=== PATIENT | male | born 1950 | race Caucasian/White ===

== ENCOUNTER → 2016-08-18 | Outpatient (CLI) | payer MEDICARE ==
[~2016-08-18] MED LIST: APIX5TAB PO; ATOR20TA9 PO; DIGO125T PO; DILT60TA27 PO; NEBI5TAB2 PO; OXYC1TAB7 PO; REGADENOSON 0.4 MG/5 ML SYRINGE ONE
== END | disposition home or self-care (01) ==
LOC: CFH 08:22
PROVIDERS: ATTEND Internal Medicine Cardiovascular Disease
DX: I10 Essential (primary) hypertension (principal); I48.0 Paroxysmal atrial fibrillation
CPT/HCPCS: 78452; 93017; A9502; J2785

== ENCOUNTER 2016-11-16 08:58 | Observation (INO) | payer MEDICARE ==
[2016-11-15 09:52] VITALS: BP 126/62
[2016-11-15 10:31] LABS: ASPARTATE AMINO TRANSFERASE 19 U/L (15-37); BLOOD UREA NITROGEN 10 mg/dL (7-18)
[~2016-11-16] VITALS: Ht 172.7 cm; Wt 69.7 kg
[~2016-11-16 08:58] MED LIST changes: +DILT120C64 PO; -REGADENOSON 0.4 MG/5 ML SYRINGE ONE
[2016-11-16] MEDS ORDERED: SODIUM CHLORIDE 0.9% 1,000 ML IV SCH (09:24)
[2016-11-16] MEDS ORDERED: CEFAZOLIN PMX 1GM/50ML 50 ML IVPB ONE (09:30)
[2016-11-16] MEDS ORDERED: FENTANYL PF 100 MCG/2ML ONE (12:13)
[2016-11-16] MEDS ORDERED: CEFAZOLIN 1,000 MG ONE (12:13)
[2016-11-16] MEDS ORDERED: MIDAZOLAM 1 MG/ML, 5ML ONE (12:13)
[2016-11-16] MEDS ORDERED: CEFAZOLIN PMX 1GM/50ML 50 ML ONE (12:20)
[2016-11-16] MEDS ORDERED: DIPHENHYDRAMINE 50 MG/ML, 1ML ONE (12:45)
[2016-11-16] MEDS ORDERED: LIDOCAINE 2%, 20ML ONE (12:50)
[2016-11-16] MEDS ORDERED: ZOLPIDEM 5MG TABLET PO PRN (13:30)
[2016-11-16 15:44] VITALS: BP 140/66
[2016-11-16] MEDS ORDERED: CEFAZOLIN PMX 1GM/50ML 50 ML IVPB SCH (16:00)
[2016-11-16] MEDS ORDERED: ACETAMINOPHEN 325 MG TABLET ONE (17:03)
[2016-11-16] MEDS ORDERED: ACETAMINOPHEN 325 MG TABLET PO PRN (17:30)
[2016-11-16] MEDS ORDERED: VANCOMYCIN PMX 1GM/200ML 200 ML IVPB ONE (18:00)
[2016-11-16] MEDS: HYDROcodone/APAP 5/325 TABLET PO PRN (19:16)
[2016-11-16 20:15] VITALS: BP 121/72
[2016-11-16] MEDS ORDERED: ATORVASTATIN 20 MG TABLET PO SCH (21:00)
[2016-11-16] MEDS: SODIUM CHLORIDE FLUSH 10ML SYR IVF SCH (21:07)
[2016-11-16] MEDS: APIXABAN 5 MG TABLET PO SCH (21:07)
[2016-11-17 02:34] VITALS: BP 124/72
[2016-11-17] MEDS: HYDROcodone/APAP 5/325 TABLET PO PRN (04:20)
[2016-11-17] MEDS ORDERED: CEFAZOLIN PMX 1GM/50ML 50 ML IVPB SCH (05:00)
[2016-11-17] MEDS ORDERED: APIX5TAB PO (07:10)
[2016-11-17 07:39] VITALS: BP 134/72
[2016-11-17] MEDS ORDERED: DIGOXIN 0.125 MG TABLET PO SCH (09:00)
[2016-11-17] MEDS: SODIUM CHLORIDE FLUSH 10ML SYR IVF SCH (09:00)
[2016-11-17] MEDS: APIXABAN 5 MG TABLET PO SCH (09:00)
[2016-11-17] MEDS ORDERED: DILTIAZEM 120 MG CAP.ER.24H PO SCH (09:00)
[2016-11-17] MEDS ORDERED: HYDR-3240 PO (09:44)
== END 2016-11-17 11:50 | disposition home or self-care (01) ==
LOC: CACL 08:58 → 5SO 13:18 → DCLOUNGE 11-17 10:56
PROVIDERS: ADMIT Internal Medicine Cardiovascular Disease; ATTEND Internal Medicine Cardiovascular Disease
DX: I49.5 Sick sinus syndrome (principal); I48.91 Unspecified atrial fibrillation
CPT/HCPCS: 33208; 36415; 71010; 71020; 80053; 85025; 85610; 93005; 96365; 96375; 99156; C1779; C1785; C1892; G0378; J0690; J1200; J2250; J3010; J3490

== ENCOUNTER 2016-12-15 07:01 | Day surgery (SDC) | payer MEDICARE ==
[~2016-12-15] VITALS: Ht 172.7 cm; Wt 70.9 kg
[~2016-12-15 07:01] MED LIST changes: +HYDR-3240 PO
== END 2016-12-15 08:02 | disposition home or self-care (01) ==
LOC: CACL 07:01
PROVIDERS: ATTEND Internal Medicine Cardiovascular Disease
DX: I48.0 Paroxysmal atrial fibrillation (principal); I49.5 Sick sinus syndrome; I10 Essential (primary) hypertension; Z95.0 Presence of cardiac pacemaker
CPT/HCPCS: 92960; 93005

== ENCOUNTER → 2017-08-13 | Outpatient (CLI) | payer MEDICARE | END | disposition home or self-care (01) | LOC: CVU 10:58 | PROVIDERS: ATTEND Physician Assistant | DX: I34.0 Nonrheumatic mitral (valve) insufficiency (principal); I37.1 Nonrheumatic pulmonary valve insufficiency; I10 Essential (primary) hypertension; I48.0 Paroxysmal atrial fibrillation; E78.5 Hyperlipidemia, unspecified; Z95.0 Presence of cardiac pacemaker; Z87.891 Personal history of nicotine dependence | CPT/HCPCS: 93306 ==

== ENCOUNTER → 2018-09-20 | Outpatient (CLI) | payer MEDICARE ==
[~2018-09-20] MED LIST changes: +ATOR20TA37 PO; -ATOR20TA9 PO; +DILT180C59 PO; +FLEC100T PO; -NEBI5TAB2 PO; +NEBI5TAB3 PO
[2018-09-20 11:03] LABS: ALBUMIN 4.1 g/dL (3.4-5.0); CALCIUM 9.1 mg/dL (8.5-10.1)
[2018-09-20 11:07] LABS: ALANINE AMINOTRANSFERASE 34 U/L (12-78); ALKALINE PHOSPHATASE 132 U/L (45-117); CREATININE 1.08 mg/dL (0.7-1.3); TOTAL PROTEIN 8.1 g/dL (6.4-8.2)
[2018-09-20 11:21] LABS: CHLORIDE 109 mmol/L (98-107)
[2018-09-20 11:26] LABS: ANION GAP 6 mmol/L (5-15)
== END | disposition home or self-care (01) ==
LOC: STAR 09:25
PROVIDERS: ATTEND Surgery
DX: Z01.818 Encounter for other preprocedural examination (principal); K43.2 Incisional hernia without obstruction or gangrene; R94.31 Abnormal electrocardiogram [ECG] [EKG]
CPT/HCPCS: 36415; 80053; 93005

== ENCOUNTER 2018-09-27 08:53 | Day surgery (SDC) | payer MEDICARE ==
[~2018-09-27] VITALS: Ht 172.7 cm; Wt 72.7 kg
[2018-09-27] MEDS ORDERED: LACTATED RINGERS 1,000 ML IV SCH (09:19)
[2018-09-27] MEDS ORDERED: GABAPENTIN 300 MG CAPSULE PO ONE (09:30)
[2018-09-27] MEDS ORDERED: ACETAMINOPHEN 500 MG TABLET PO ONE (09:30)
[2018-09-27 09:51] VITALS: BP 117/71
[2018-09-27] MEDS ORDERED: BUPIVACAINE/PF-EPI 0.5% 1:200K ONE (10:30)
[2018-09-27] MEDS ORDERED: HYDROmorphone 2 MG/ML, 1ML IVPush PRN (11:00)
[2018-09-27] MEDS ORDERED: OXYcodone 5 MG/5 ML ORAL.SOL UDC PO PRN (11:00)
[2018-09-27] MEDS ORDERED: MEPERIDINE/PF 25MG/0.5ML IVPush PRN (11:00)
[2018-09-27] MEDS ORDERED: DIPHENHYDRAMINE 50 MG/ML, 1ML IVPush PRN (11:00)
[2018-09-27] MEDS ORDERED: PROMETHAZINE 25 MG/ML, 1ML IV PRN (11:00)
[2018-09-27] MEDS ORDERED: hydrALAzine 20 MG/ML, 1ML IV PRN (11:00)
[2018-09-27] MEDS ORDERED: PROCHLORPERAZINE 5 MG/ML, 2ML IV PRN (11:00)
[2018-09-27] MEDS ORDERED: FENTANYL PF 100 MCG/2ML IV PRN (11:00)
[2018-09-27] MEDS ORDERED: LABETALOL 5MG/ML, 20ML IV PRN (11:00)
[2018-09-27] MEDS ORDERED: METOPROLOL 1 MG/ML, 5ML IV PRN (11:00)
[2018-09-27] MEDS ORDERED: HALOPERIDOL 5 MG/ML IV PRN (11:00)
[2018-09-27] MEDS ORDERED: FENTANYL PF 250 MCG/5ML ONE (11:04)
[2018-09-27] MEDS ORDERED: EPHEDRINE 50 MG/ML, 1ML ONE (11:06)
[2018-09-27] MEDS ORDERED: ESMOLOL 100 MG/10 ML ONE (11:06)
[2018-09-27] MEDS ORDERED: SUCCINYLCHOLINE 20 MG/ML, 10ML ONE (13:13)
[2018-09-27] MEDS ORDERED: NEOSTIGMINE 1 MG/ML, 10ML ONE (13:13)
[2018-09-27] MEDS ORDERED: PROPOFOL 10 MG/ML, 20ML ONE (13:13)
[2018-09-27] MEDS ORDERED: GLYCOPYRROLATE 0.2MG/1ML, 5ML ONE (13:13)
[2018-09-27] MEDS ORDERED: ROCURONIUM 10MG/ML,5ML ONE (13:13)
[2018-09-27] MEDS ORDERED: DEXAMETHASONE 4 MG/ML, 1ML ONE (13:13)
[2018-09-27] MEDS ORDERED: CEFAZOLIN 1,000 MG ONE (13:13)
[2018-09-27] MEDS ORDERED: ONDANSETRON 2MG/ML, 2ML ONE ×2 (13:13→15:51)
[2018-09-27] MEDS ORDERED: METOPROLOL 1 MG/ML, 5ML ONE (13:39)
[2018-09-27] MEDS ORDERED: OXYcodone 5 MG/5 ML ORAL.SOL UDC ONE (13:40)
[2018-09-27] MEDS ORDERED: FENTANYL PF 100 MCG/2ML ONE (13:55)
== END 2018-09-28 00:20 | disposition home or self-care (01) ==
LOC: OUT 08:53 → 4NOR 19:48 → OUT 09-28 00:20
PROVIDERS: ATTEND Surgery
DX: K43.2 Incisional hernia without obstruction or gangrene (principal); K91.72 Accidental puncture and laceration of a digestive system organ or structure during other procedure; I10 Essential (primary) hypertension; E78.5 Hyperlipidemia, unspecified; I48.91 Unspecified atrial fibrillation; I49.5 Sick sinus syndrome; Z79.01 Long term (current) use of anticoagulants; Z79.899 Other long term (current) drug therapy; Z90.49 Acquired absence of other specified parts of digestive tract; Z95.0 Presence of cardiac pacemaker; Z96.659 Presence of unspecified artificial knee joint; Z98.890 Other specified postprocedural states; Y83.8 Other surgical procedures as the cause of abnormal reaction of the patient, or of later complication, without mention of misadventure at the time of the procedure
CPT/HCPCS: 49654; C1781; J0330; J0690; J1100; J1200; J2405; J2704; J2710; J3010; J7120; G0378

== ENCOUNTER → 2020-12-20 | Outpatient (CLI) | payer MEDICARE ==
[~2020-12-20] MED LIST changes: -DIGO125T PO; +DIGO125T85 PO; +HYDR-2214 PO; -HYDR-3240 PO; +REGADENOSON 0.4 MG/5 ML SYRINGE ONE
== END | disposition home or self-care (01) ==
LOC: CFH 06:47
PROVIDERS: ATTEND Internal Medicine Cardiovascular Disease
DX: I08.8 Other rheumatic multiple valve diseases (principal); I48.0 Paroxysmal atrial fibrillation; E78.5 Hyperlipidemia, unspecified; Z95.0 Presence of cardiac pacemaker
CPT/HCPCS: 78452; 93017; 93306; A9502; J2785